=== PATIENT | female | born 1980 ===

== ENCOUNTER 2024-08-14 08:30 | Emergency (ER) | payer OTHER ==
[2024-08-14] VITALS (8 sets, daily range): BP systolic 115–137; BP diastolic 77–94
[~2024-08-14] VITALS: Ht 170.2 cm; Wt 86.0 kg
[2024-08-14] MEDS ORDERED: LEVOFLOXACIN750 MG PO (09:51)
== END 2024-08-14 10:17 | disposition home or self-care (01) | DRG 153 ==
LOC: ED 08:30
DX: J32.0 Chronic maxillary sinusitis (principal); I10 Essential (primary) hypertension; Z20.822 Contact with and (suspected) exposure to COVID-19